=== PATIENT | female | born 1945 | race Caucasian/White ===

== ENCOUNTER → 2016-10-16 | Outpatient (CLI) | payer OTHER, MEDICARE ==
[~2016-10-16] MED LIST: ALL100 PO; ASCA500 PO; BACL10TA PO; CALC600T9 PO; CALCTAB5 PO; CARI350T28 PO; GEMF600T3 PO; HYDR-5688 PO; LISI-461 PO; LOVA40TA4 PO; LSX20 PO; OXGN; OXYC-57 PO; PRLSR20 PO; VITAMIN D3 PO
[2016-10-16 13:11] LABS: BASO % 0.1 %; BASO ABS # 0.01 K/uL (0-0.2); COMPLETE YES; EOS % 1.4 %; HEMATOCRIT 34.7 % (37-47); IG% 0.3 %; LYMPH % 34.1 %; LYMPH ABS # 2.52 K/uL (1.2-3.4); MEAN CELL VOLUME 96.1 fL (80-100); MEAN CORPUSCULAR HEMOGLOBIN 32.7 pg (25-34); MEAN PLATELET VOLUME 10.4 fL (7.4-10.4); MONO % 8.7 %; NEUT % 55.4 %; PLATELET COUNT 304 K/uL (130-400); RED BLOOD COUNT 3.61 M/uL (4.2-5.4); WHITE BLOOD COUNT 7.38 K/uL (4.8-10.8)
[2016-10-16 13:40] LABS: ALT/SGPT 29 U/L (12-78); BLOOD UREA NITROGEN 45 mg/dl (7-18); CALCIUM 9.9 mg/dl (8.5-10.1); CARBON DIOXIDE 21 mmol/L (21-32); CHLORIDE 109 mmol/L (98-107); GLUCOSE 105 mg/dl (70-99); POTASSIUM 4.2 mmol/L (3.5-5.1); SODIUM 142 mmol/L (136-145)
[2016-10-16 13:43] LABS: ALB/GLOB RATIO 1.1 (0.9-2); ALKALINE PHOSPHATASE 87 U/L (45-117); AST/SGOT 30 U/L (15-37)
[2016-10-16 14:56] LABS: URINE APPEARANCE CLOUDY (CLEAR); URINE BILIRUBIN NEG (NEG); URINE COLOR YELLOW; URINE EPITHELIAL CELL AUTO >30 /lpf (0-5); URINE NITRITE NEG (NEG); URINE SPECIFIC GRAVITY 1.016 (1.000-1.030); UROBILINOGEN NEG (NEG); ZZUR CULT IF INDIC CLEAN CATCH YES
[2016-10-16 15:06] LABS: MANUAL MICROSCOPIC REQUIRED? NO; REVIEW REQ? YES
== END | disposition home or self-care (01) ==
LOC: C.CPL 12:11
PROVIDERS: ATTEND Physical Medicine & Rehabilitation Sports Medicine
DX: Z01.818 Encounter for other preprocedural examination (principal); S46.811A Strain of other muscles, fascia and tendons at shoulder and upper arm level, right arm, initial encounter; M25.511 Pain in right shoulder; X58.XXXA Exposure to other specified factors, initial encounter

== ENCOUNTER → 2016-11-06 | Day surgery (SDC) | payer OTHER, MEDICARE ==
--- NOTE | 2016-10-17 11:48 | HISTORY & PHYSICAL EXAMINATION ---
DATE OF ADMISSION: 10/23/2016 ATTENDING PHYSICIAN: Dr. Dong Kiser. CHIEF COMPLAINT: Traumatic right shoulder pain. HISTORY OF PRESENT ILLNESS: This 71-year-old female is seen today as a new patient to our clinic for evaluation of her right shoulder. The patient had a traumatic fall on 09/03/2016 landing on her right shoulder. The patient states she was seen at the Emergency Department in [place], [place] and had x-rays performed that showed no fracture was advised to follow up with her primary care provider. The patient states she saw her PCP, Avinash Keating PA-C who ordered physical therapy which patient received 2-3 times weekly for 1 month. The patient states that therapy did help increase her range of motion but stated that she still experienced significant pain in the right shoulder with weakness of her right upper extremity in certain positions. The patient went back to see her primary care provider and an MRI was ordered. The patient obtained the MRI in [facility] on 10/08/2016. MRI showed a full thickness tear of the supraspinatus and infraspinatus tendons with retraction and likely full thickness partial large tear of the subscapularis, severe AC joint osteoarthritis and large joint effusion. Case was discussed with Dr. Dong Kiser and he evaluated the patient at today's visit and discussed surgical intervention with the patient which she expressed to proceed with. At this time the patient denies any numbness or tingling in her right upper extremity, any significant swelling over the right shoulder, but does have aching pain throughout the entire right shoulder joint. The patient also states she does have a history of urinary tract infections as well as experiencing nausea and vomiting after having surgical procedures performed. PAST SURGICAL HISTORY: Right wrist carpal bone excision, cholecystectomy, hysterectomy, tonsillectomy, adenoidectomy, lumbar fusion and bladder tacking. PAST MEDICAL HISTORY: Hypertension, hyperlipidemia, gout, sleep apnea, gastroesophageal reflux disease and chronic low back pain. FAMILY HISTORY: Mother myocardial infarction. Father mini strokes and coronary artery disease. ALLERGIES: The patient has no known drug allergies. MEDICATIONS: Allopurinol 300 mg oral tablet 1 tab daily, baclofen 10 mg oral tablet 1 tab 3 times daily, calcium carbonate 600 mg oral tablet 2 tabs 3 times daily as needed for indigestion, furosemide 20 mg oral tab 1 tab daily, gemfibrozil 600 mg oral tablet 1 tab twice daily, lisinopril 10 mg oral tablet 1 tab daily, [place] 5/325 mg oral tablet 1 tab every 6 hours as needed for pain, vitamin D3 1000 International Units 1 cap daily. SOCIAL HISTORY: The patient denies any history of tobacco, alcohol or illicit drug use. PHYSICAL EXAMINATION: GENERAL: The patient's skin is normal in appearance. No open skin lesions or discharge. Pupils are equal and reactive to light and accommodate. Extraocular movements are intact. EARS: Canals are clear of cerumen. Tympanic membranes are intact bilaterally with no bulging or effusion. NOSE: Turbinates pink and boggy in appearance. No appreciable rhinorrhea. THROAT: Posterior oropharynx is clear with absence of edema, erythema or exudate. CARDIOVASCULAR: The patient has a regular rate and rhythm with no murmurs or gallops appreciated. LUNGS: Auscultation of the lung lewis reveals clear breath sounds throughout with no wheezing, rales or rhonchi. ABDOMEN: Obese, nondistended, nontender with normoactive bowel sounds. EXTREMITIES: RIGHT SHOULDER: The patient is able to forward flex to 90 degrees and abduct to 75 degrees but has definite weakness with applied resistance in these positions. The patient has mild crepitation with active and passive range of motion of the right shoulder joint. She has a positive [place]'s test with thumbs pointed upwards and downwards at 0 and 30 degrees. The patient has positive empty can test, positive cross arm test, positive external rotation test, positive subscapularis liftoff test. Tenderness over the AC joint, glenohumeral roof and biceps tendon. There is no notable edema, erythema, ecchymosis, warmth or palpable deformity. Internal rotation test is negative. The patient also has a negative load shift test, negative sulcus sign, negative apprehension relocation test. Negative Kendrick-Abelino impingement test, negative Neer's impingement test. No muscle atrophy noted. Moderate tenderness to palpation over the posterior shoulder musculature. The patient is able to reach terminal flexion and extension at her elbow joint. She has full range of motion of her right wrist. Good dexterity of her fingers. Equal senior benefits specialist strength bilaterally. She is neurovascularly intact in the right upper extremity. Her peripheral pulses are palpable. Capillary refill is brisk. All other extremities normal in appearance with appropriate range of motion and strength. NEUROLOGIC EXAMINATION: Cranial nerves II-XII intact with no motor or sensory deficit. PSYCHOLOGICAL/GENERAL EXAMINATION: The patient is alert and oriented x3 with proper grooming and hygiene. DIAGNOSIS: Massive right shoulder rotator cuff tear; acromioclavicular joint osteoarthritis. PROCEDURE: Arthroscopic right shoulder rotator cuff/labral repair versus debridement, subacromial decompression, biceps tenotomy versus tenodesis, open distal clavicle excision, examination under anesthesia. PLAN: The patient is scheduled to undergo this procedure with Dr. Dong Kiser at the [facility] on an outpatient basis on 10/23/2016. Risks and complications of surgery such as infection, bleeding, pain, scarring, nerve and blood vessel damage, weakness, wound problems, stiffness, incomplete relief of symptoms, heart attack, stroke, reoccurrence, hardware failure, fracture, shoulder instability, arthritis and arthrofibrosis were explained to the patient. She understands and agrees. Written consent to perform the procedure was obtained. We will also obtain preoperative medical clearance from her primary care provider, Avinash Keating PA-C along with a preoperative EKG, CBC, CMP, microscopic urinalysis and urine culture. The patient was advised that she will be provided with a sling after surgery for comfort. She will also be given an Fazal wrap, ice pack to apply to the shoulder 4-5 times a day for 15-20 minute intervals. The patient was not given a prescription for any narcotic pain medication because she currently takes hydrocodone for chronic back pain. The patient states she will proceed to the hospital following her appointment today to obtain the necessary testing. She will also pick remover a pack of ChemPrep wipes to prep the shoulder the night before the surgery. The patient will be scheduled for a postoperative followup with Dr. Kiser 2 weeks after the surgical procedure and will have her initial PT appointment in our PT clinic 2 days after her surgery. The patient states she will most likely obtain additional physical therapy in the [place] area which she resides. The patient verbalized understanding of all information provided at today's visit, thanked us for the care she has received in our clinic during today's visit and states that if she has additional questions or concerns that should arise prior to her procedure date, she will contact the clinic. The patient was advised she will be contacted by the anesthesia department with a questionnaire for clearance for the procedure.
[2016-10-17 16:11] VITALS: BMI 51.0
[~2016-11-06] VITALS: Ht 165.1 cm; Wt 118.2 kg
[~2016-11-06] MED LIST changes: +ACETAMINOPHEN 1000 MG/100 ML IV IV ONE; +ATROPINE SULFATE 0.1 MG/ML 5ML SYR IV PRN; +BUPIVACAINE 0.25% 30 ML VIAL ONE; +BUPIVACAINE 0.5 % 5 MG/1 ML MPF 30ML VIAL ONE; -CARI350T28 PO; +CEFAZOLIN 2000 MG/60 ML D5W IV SCH; +CEFAZOLIN SOD 1 GM VIAL ONE; +DEXAMETHASONE SOD INJ 4 MG/ML VIAL ONE; +EpHEDrine SULFATE INJ 50 MG/ML AMP IV PRN; +EpHEDrine SULFATE INJ 50 MG/ML AMP ONE; +FENTANYL CITRATE INJ 50 MCG/1 ML 2 ML VIAL ONE; +GLYCOPYRROLATE INJ 0.2 MG/ML VIAL ONE; +HYDROmorphone INJ 2 MG/ML SYR/VIAL IV PRN; +LACTATED RINGER'S 1000ML 1,000 ML IV SCH; +LIDOCAINE HCL 2% 2 ML VIAL (20MG/ML) ONE; +LIDOCAINE/EPINEPHRINE 1% 20 ML VIAL ONE; -LOVA40TA4 PO; +MIDAZOLAM HCL 1 MG/ML 2ML VIAL ONE; +MoRPHine SULFATE 2 MG/ML CARP IV PRN; +MoRPHine SULFATE 4 MG/ML 1 ML CARP\\VIAL IV PRN; +NEOSTIGMINE METHYLSULFATE 5 MG/5 ML SYR ONE; +ONDANSETRON INJ 2 MG/ML 2 ML VIAL IV PRN; +ONDANSETRON INJ 2 MG/ML 2 ML VIAL ONE; +OXYCODONE/ACETAMINOPHEN 5-325 TAB PO PRN; +PHENYLEPHRINE 100MCG/ML 5ML SYR IV PRN; +PHENYLEPHRINE HCL INJ 10 MG/ML VIAL ONE; -PRLSR20 PO; +PROPOFOL IV EMULSION 10 MG/ML 20 ML VIAL IV ONE; +ROCURONIUM BROMIDE 10 MG/ML 5 ML VIAL ONE; +SODIUM CHLORIDE 0.9% 1000ML 1,000 ML IV SCH; +SODIUM CHLORIDE 0.9% PF 50 ML VIAL ONE; +SUCCINYLCHOLINE CHLORIDE 20 MG/ML 10 ML VIAL IV ONE
[2016-11-06 05:38] VITALS: BP 160/66; PULSE 91; TEMP 36.7; O2SAT 92; Ht 165.1 cm; Wt 118.2 kg
[2016-11-06 06:28] LABS: PARTIAL THROMBOPLASTIN RATIO 0.9; PROTHROMBIN TIME (PATIENT) 10.2 SECONDS (9.0-12.0)
--- NOTE | 2016-11-06 06:44 | History & Physical Bridge Note ---
H&P Re-Evaluation Bridge Note: I have examined the patient, reviewed the History & Physical and in the interval since the performance of the History & Physical I have noted the following changes of clinical significance: No changes noted
[2016-11-06 06:50] LABS: CALCIUM 10.1 mg/dl (8.5-10.1); CREATININE 1.3 mg/dl (0.60-1.20)
--- NOTE | 2016-11-06 11:23 | Discharge Instructions ---
Discharge Instructions Admission Reason for Admission: Massive Right Shoulder Rotator Cuff Tear, acromioc Discharge Discharge Diagnosis / Problem: Status post right shoulder Rotator cuff repair Discharge Goals Goal(s): Decrease discomfort, Improve function, Increase independence Activity Recommendations Activity Limitations: per Instructions/Follow-up section Lifting Limitations: none May Resume Sexual Activity: when tolerated Shower/Bathe: may shower/bathe in 3 days Driving or Machine Use: no . Instructions / Follow-Up Instructions / Follow-Up Dr. Kiser in 10-15 days PT in 2-3 days Current Hospital Diet Patient's current hospital diet: Renal Diet Discharge Diet Recommended Diet: Renal Diet Procedures Procedures Performed: Right Shoulder Arthroscopy, Massive Rotator Cuff Repair; Extensive Debridement; Subacromial Decompression; Open Distal Clavicle Excision; Exam Under Anesthesia Pending Studies Studies pending at discharge: no Medical Emergencies . Who to Call and When: Medical Emergencies: If at any time you feel your situation is an emergency, please call 911 immediately. . Non-Emergent Contact Non-Emergency issues call your: Surgeon Call Non-Emergent contact if: temperature is above 101.5, your pain is not controlled, wound has increased drainage, wound has increased redness . "Provider Documentation" section prepared by Dong Kiser. VTE Core Measure Inpt VTE Proph given/why not?: Pilar Javier
--- NOTE | 2016-11-06 11:24 | [facility] Post Operative Brief Note ---
Immediate Operative Summary Operative Date Nov 06, 2016. Pre-Operative Diagnosis Massive Right Shoulder Rotator Cuff Tear; Acromioclavicular Joint Osteoarthritis Post-Operative Diagnosis Massive Right Shoulder Rotator Cuff Tear; Acromioclavicular Joint Osteoarthritis Procedure(s) Performed 1) Right Shoulder Arthroscopy, Massive Rotator Cuff Repair. 2) Extensive Debridement with Subacromial Decompression. 3) Open Distal Clavicle Excision. 4) Exam Under Anesthesia Surgeon Dr. Dong Kiser Crankshaft Straightener Surgeon(s) Ankur Davis PA-C & Patti Bonilla MD Estimated Blood Loss 20ml Findings As above. Fluids (cc crystalloids) 1500 Specimens A. Distal Clavicle Drains n/a Anesthesia GET + Interscalene N block Complication(s) None Disposition Recovery Room / PACU (Stable)
--- NOTE | 2016-11-06 11:25 | [facility] Operative Report ---
Operative Report Operative Date Nov 06, 2016. Pre-Operative Diagnosis Massive Right Shoulder Rotator Cuff Tear; Acromioclavicular Joint Osteoarthritis Post-Operative Diagnosis same + impingement, synovitis, labral fraying, LHB tear, chondromalacia Procedure(s) Performed 1) Right Shoulder Arthroscopy, Massive Rotator Cuff Repair. 2) Extensive Debridement of the: labrum, LHP attachment, humeral head, and Subacromial Decompression. 3) Open Distal Clavicle Excision. 4) Exam Under Anesthesia. Surgeon Dr. Dong Kiser Consulting Group Analyst Surgeon(s) Ankur Davis PA-C & Patti Bonilla MD Estimated Blood Loss 20ml Findings The Right shoulder was then examined under anesthesia and it exhibited: Forward flexion and abduction to165; external rotation 90; internal rotation 75. There was no noted instability. Posterior and anterior translation was 1+ and they had no sulcus sign and was symmetric to their other side. The diagnostic arthroscopy commenced with the following findings: 1. The biceps anchor was frayed & the biceps was no longer attached to the labrum & not within the bicipital groove. 2. The anterior labrum was intact, there was some evidence of crystalline deposit. 3. The inferior labrum had minimal fraying, but otherwise intact. 4. The inferior pouch showed no loose bodies. 5. The posterior labrum was intact. 6. The articular surface of the glenoid had Outerbridge type II changes centrally. 7. The articular surface of humeral head had Outerbridge type II changes anterior inferiorly. 8. The long Head of the Biceps was torn and was not visible within the bicipital groove. 9. The Subscapularis tendon had a complete tear of the superior third. 10. The Supraspinatus tendon was completely torn and retracted to the level of the glenoid. 11. The Infraspinatus & Teres Minor were intact for the most part except for the very anterior portion, that was involved in the tear. 12. The Subacromial space showed synovitis and a bony spur. Fluids 1500 Specimens A. Distal Clavicle Drains n/a Anesthesia GET + Interscalene N block Complication(s) None Disposition Recovery Room / PACU (Stable) Indications This is a pleasant 71-year-old female who has been having right shoulder pain since August 2016 following a fall that has failed conservative management. They have MRI and clinical findings suggestive of right shoulder rotator cuff tear and AC joint arthritis. After a lengthy discussion regarding their options of conservative versus operative management, they have elected to proceed with surgery. The risks of surgery were discussed and include but not limited to: Infection, bleeding, nerve damage, continued pain, progression of arthritis, stiffness, decreased level of activity, and deep vein thrombosis. The patient understood all of their options and the risks of surgery and would like to proceed. The informed consent was signed. Description of Procedure IMPLANTS: 4.75 mm x 5 biocomposite Swivelock (Arthrex) DESCRIPTION OF THE PROCEDURE: The patient was taken to the operating room and following administration of her interscalene nerve block and general anesthetic, a multidisciplinary time-out was performed identifying my initials on the right shoulder as the correct and operative limb. The patient was then placed in beach chair position with all of their bony prominences well-padded. They were then prepped and draped in the usual orthopedic sterile fashion. All of the bony landmarks were marked as well as the planned incisions. The planned incisions were injected with a 50:50 mixture of 0.5% Marcaine plain and 1% Lidocaine with Epinephrine for a total of 8 cc. Then using a spinal needle which was placed intra-articularly into the glenohumeral joint and insufflated to 35 cc and there was noted appropriate back flow, an additional 15 cc were placed. The standard posterior portal was made with an 11-blade. Trocar was introduced into the glenohumeral joint in the standard fashion. Using a spinal needle, the anterior portal was placed lateral to the coracoid under direct visualization. A 7mm cannula was then placed. The intra-articular portion of shoulder was addressed first with debriding any fraying from the labrum, stump of the LHB, synovitis, humeral head under [place], subscapularis and supraspinatus tears. The labrum was probed and found to be intact. The arthroscope had also been removed from the posterior portal and placed anteriorly for better posterior visualization. The arthroscope was then placed subacromially and a 7 mm cannula was placed to allow for easier exchange between the different portals. There was bursitis noted. A lateral portal was created under direct visualization with a spinal needle. Once the bursitis was removed, the noted bony spur from the acromion underwent subacromial decompression with a bur in the standard fashion removing approximately 4 mm. The rotator cuff tear was fairly immobile after removing the bursitis and any adhesions between the glenoid and rotator cuff. A Blanca cannula was placed in the lateral portal. The footprint of the rotator cuff was prepared with a small bur creating a bleeding surface to allow for healing of the subscapularis, supraspinatus, and external rotators. A FiberLink was used to pass a fiber tape through the superior aspect of the torn subscapularis tendon. A 4.75 mm SwiveLock was placed in the standard fashion through a small stab incision off the anterior lateral aspect of the acromion, with the arm in slight external rotation and abduction. This reduced the subscap tear very nicely. The FiberWires within the anchor were also passed one limb through the superior aspect of the tear and one through the inferior aspect were arthroscopically tied and docked out the anterior portal for later placement in the lateral row. Next our attention was to placing 2 medial row anchors which were placed, one centrally with the arm internally rotated through the same small stab incision and another more posteriorly through a second superior stab incision with a more neutral arm position, in the standard fashion. A FiberLink was passed through the most anterior aspect of the supraspinatus, to be incorporated into the lateral row, for the anterior anchor. A fiber length was also used to pass through the posterior aspect of the supraspinatus to be incorporated in the lateral row, for that posterior anchor. The FiberTapes and FiberWire from each anchor were passed using a FiberLink using the scorpion passer. The FiberTapes were crossed, for placement of the lateral row anchors, anteriorly being performed first (it also contained the FiberWire sutures that had been used previously to repair the subscapularis tendon.) followed by posterior in the standard fashion. One strand of each FiberWire from the medial row anchors was passed out the lateral portal and tied together. This was then reduced to the rotator cuff by pulling on the other limb of each FiberWire. Those limbs were then transferred to the lateral portal and a non-sliding alternating half hitch was performed to complete the repair, in the standard fashion. The humeral head was no longer visible. All of the instruments were removed. All of the instruments were removed. Our attention was drawn to the AC joint and making a 3 cm incision in-line with the anterior portal incision was made and carried down to the Superior AC joint ligament. A longitudinal incision was made in-line with the fibers of the superior AC joint ligament. The posterior and anterior aspect of the clavicle was exposed and using a sagittal saw the distal 7 mm was removed. A rasp was used to smooth out the edges. The wound was copiously irrigated. Bone wax was placed along the exposed bone. There was adequate space. The Superior AC joint ligament was closed with 0 Vicryl. The subcutaneous layer was closed with 3-0 Vicryl. The skin was closed with a running subcuticular stitch using 3-0 Prolene. Steri strips were placed over top. The portal sites were closed with 3-0 Prolene in a standard fashion. Xeroform was placed overtop followed by 4 x 4's, ABDs, and foam tape. The patient was placed in a sling. The sponge and needle counts were correct. POSTOPERATIVE INSTRUCTIONS: The patient will follow-up with physical therapy in two days. The patient will wear for 6 weeks. The patient will follow-up with me in 10 to 15 days. I attest to the content of the Intraoperative Record and any orders documented therein. Any exceptions are noted below.
--- NOTE | 2016-11-06 12:04 | [facility] Operative Report ---
Operative Report Operative Date Nov 06, 2016. Pre-Operative Diagnosis Massive Right Shoulder Rotator Cuff Tear; Acromioclavicular Joint Osteoarthritis Post-Operative Diagnosis same Procedure(s) Performed right shoulder arthroscopy, rotator cuff repair, subacromial decompression, open distal clavicle excision Surgeon Dr. Dong Kiser Steel Rule Die Maker Surgeon(s) Ankur Davis PA-C & Patti Bonilla MD Estimated Blood Loss 20ml Fluids 1500 Specimens A. Distal Clavicle Drains n/a Anesthesia GET + Interscalene N block Complication(s) None Disposition Recovery Room / PACU (Stable) Indications continued right shoulder pain, failed conservative measures, surgery recommended , consents signed. Description of Procedure taken to the OR, prepped and draped, I was present the entire case, please see Dr. Kiser's op note for further detail. I attest to the content of the Intraoperative Record and any orders documented therein. Any exceptions are noted below.
[2016-11-06 12:10] VITALS: BP 132/55; PULSE 83; TEMP 36.2; O2SAT 93
[2016-11-06 12:40] VITALS: BP 144/64; PULSE 91; O2SAT 95
--- NOTE | 2016-11-06 12:44 | Anesthesiology Progress Note ---
Anesthesia Post Op Note Date & Time Nov 06, 2016 at 12:44 Vital Signs Pain Intensity: 4 Vital Signs Past 12 Hours Date Time Temp Pulse Resp B/P Pulse Ox O2 Delivery O2 Flow Rate FiO2 11/06/16 12:10 36.2 83 20 132/55 93 Nasal Cannula 2 11/06/16 12:05 36.1 80 22 134/48 92 Nasal Cannula 2 11/06/16 11:55 81 21 103/75 96 Nasal Cannula 2 11/06/16 11:45 79 20 131/48 97 Mask 10 11/06/16 11:35 77 17 138/65 96 Mask 10 11/06/16 11:28 36.2 81 17 131/66 95 Mask 10 11/06/16 05:38 36.7 91 20 160/66 92 Room Air Notes Mental Status: alert / awake / arousable, participated in evaluation Pt Amnestic to Procedure: Yes Nausea / Vomiting: adequately controlled Pain: adequately controlled Airway Patency, RR, SpO2: stable & adequate BP & HR: stable & adequate Hydration State: stable & adequate Anesthetic Complications: no major complications apparent
[2016-11-06 13:10] VITALS: BP 151/56; PULSE 88; TEMP 36.4; O2SAT 92
== END | disposition home or self-care (01) ==
LOC: C.ACU 04:58
PROVIDERS: ATTEND Orthopaedic Surgery Sports Medicine
DX: S46.011A Strain of muscle(s) and tendon(s) of the rotator cuff of right shoulder, initial encounter (principal); M19.011 Primary osteoarthritis, right shoulder; M94.211 Chondromalacia, right shoulder; W19.XXXA Unspecified fall, initial encounter; Y92.89 Other specified places as the place of occurrence of the external cause; I10 Essential (primary) hypertension; G47.30 Sleep apnea, unspecified; E78.5 Hyperlipidemia, unspecified; Z79.899 Other long term (current) drug therapy

== ENCOUNTER → 2017-11-12 | Outpatient (CLI) | payer OTHER, MEDICARE ==
[~2017-11-12] MED LIST changes: -ACETAMINOPHEN 1000 MG/100 ML IV IV ONE; -ATROPINE SULFATE 0.1 MG/ML 5ML SYR IV PRN; -BUPIVACAINE 0.25% 30 ML VIAL ONE; -BUPIVACAINE 0.5 % 5 MG/1 ML MPF 30ML VIAL ONE; -CEFAZOLIN 2000 MG/60 ML D5W IV SCH; -CEFAZOLIN SOD 1 GM VIAL ONE; -DEXAMETHASONE SOD INJ 4 MG/ML VIAL ONE; -EpHEDrine SULFATE INJ 50 MG/ML AMP IV PRN; -EpHEDrine SULFATE INJ 50 MG/ML AMP ONE; -FENTANYL CITRATE INJ 50 MCG/1 ML 2 ML VIAL ONE; -GLYCOPYRROLATE INJ 0.2 MG/ML VIAL ONE; -HYDR-5688 PO; -HYDROmorphone INJ 2 MG/ML SYR/VIAL IV PRN; -LACTATED RINGER'S 1000ML 1,000 ML IV SCH; -LIDOCAINE HCL 2% 2 ML VIAL (20MG/ML) ONE; -LIDOCAINE/EPINEPHRINE 1% 20 ML VIAL ONE; -MIDAZOLAM HCL 1 MG/ML 2ML VIAL ONE; -MoRPHine SULFATE 2 MG/ML CARP IV PRN; -MoRPHine SULFATE 4 MG/ML 1 ML CARP\\VIAL IV PRN; -NEOSTIGMINE METHYLSULFATE 5 MG/5 ML SYR ONE; -ONDANSETRON INJ 2 MG/ML 2 ML VIAL IV PRN; -ONDANSETRON INJ 2 MG/ML 2 ML VIAL ONE; -OXYC-57 PO; -OXYCODONE/ACETAMINOPHEN 5-325 TAB PO PRN; -PHENYLEPHRINE 100MCG/ML 5ML SYR IV PRN; -PHENYLEPHRINE HCL INJ 10 MG/ML VIAL ONE; -PROPOFOL IV EMULSION 10 MG/ML 20 ML VIAL IV ONE; -ROCURONIUM BROMIDE 10 MG/ML 5 ML VIAL ONE; -SODIUM CHLORIDE 0.9% 1000ML 1,000 ML IV SCH; -SODIUM CHLORIDE 0.9% PF 50 ML VIAL ONE; -SUCCINYLCHOLINE CHLORIDE 20 MG/ML 10 ML VIAL IV ONE
== END | disposition home or self-care (01) ==
LOC: C.RDSM 11:51
PROVIDERS: ATTEND Orthopaedic Surgery Sports Medicine
DX: Z09 Encounter for follow-up examination after completed treatment for conditions other than malignant neoplasm (principal); M25.511 Pain in right shoulder